=== PATIENT | female | born 1955 | race Caucasian/White ===

== ENCOUNTER 2016-10-24 06:18 | Emergency (ER) | payer BC ==
[2016-03-30 12:11] VITALS: BMI 34.3
[~2016-10-24 06:18] MED LIST: BUPIVACAINE HCL SM; BUPROPION XL300 MG PO; CATAPRES0.1 MG PO; CHLORASEPTIC177 ML TOPICAL; COLACE100 MG PO; OMEPRAZOLE40 MG PO; PERCOCET 10/3251 TA1 PO; PHENERGAN25 M1 PO; PRAVACHOL20 MG PO; PRILOSEC20 MG PO; SENOKOT-S TABLE1 TAB PO; SYNTHROID50 MCG PO
== END 2016-10-24 09:12 | disposition home or self-care (01) ==
LOC: D.ER 06:18
DX: M54.5 Low back pain (principal); M54.30 Sciatica, unspecified side; R60.0 Localized edema

== ENCOUNTER → 2016-10-26 08:30 | Outpatient (CLI) | payer BC ==
[2016-03-30 12:11] VITALS: BMI 34.3
== END | disposition home or self-care (01) ==
LOC: D.MRI 08:30
DX: M54.16 Radiculopathy, lumbar region (principal)

== ENCOUNTER 2017-07-30 08:42 | Outpatient (CLI) | payer BC ==
[2016-03-30 12:11] VITALS: BMI 34.3
== END 2017-07-30 10:25 ==
LOC: D.OPS 08:42
DX: K21.9 Gastro-esophageal reflux disease without esophagitis (principal); J39.8 Other specified diseases of upper respiratory tract

== ENCOUNTER 2017-08-02 09:21 | Day surgery (SDC) | payer BC ==
[~2017-08-02] VITALS: Ht 167.6 cm; Wt 90.9 kg
[2017-08-02 13:07] VITALS: BP 129/77; Ht 167.6 cm; Wt 90.9 kg
[2017-08-02 13:58] LABS: BASOPHILS 0.4 % (0-2); EOSINOPHILS 1.3 % (0-7); HEMATOCRIT 40.1 % (36.0-48.0); HEMOGLOBIN 12.8 g/dL (12-16); IMMATURE GRANULOCYTES 0.2 % (0-5); LYMPHOCYTES 38.7 % (15-50); MCH 29.5 pg (26.0-34.0); MCHC 31.9 g/dL (31.0-37.0); MCV 92.4 fL (80.0-100.0); MEAN PLATELET VOLUME 11.7 fL (7.4-10.4); MONOCYTES 11.1 % (2-11); NEUTROPHILS 48.3 % (40-80); PLATELET COUNT 280 10x3/uL (130-400); RBC 4.34 10x6/uL (4.00-5.40); RDW 14.6 % (11.5-14.5); WBC 4.5 10x3/uL (4.8-10.8)
[2017-08-02 14:05] LABS: CALC OSMOLALITY 283 mosm/kg (275-300); CALCIUM 9.4 mg/dL (8.5-10.1); CARBON DIOXIDE 27.8 mmol/L (21.0-32.0); CHLORIDE - SERUM 106 mmol/L (98-107); CREATININE - SERUM 0.7 mg/dL (0.6-1.3); GLUCOSE 85 mg/dL (74-106); POTASSIUM - SERUM 3.8 mmol/L (3.5-5.1); SODIUM 143 mmol/L (136-145); UREA NITROGEN 13 mg/dL (7-18); eGFR NON AFRICAN AMERICAN > 90 mL/min (90-120)
== END 2017-08-02 15:35 | disposition home or self-care (01) ==
LOC: D.OPS 09:21
PROVIDERS: Anesthesiology
DX: K21.9 Gastro-esophageal reflux disease without esophagitis (principal); J39.8 Other specified diseases of upper respiratory tract; E03.9 Hypothyroidism, unspecified; Z01.812 Encounter for preprocedural laboratory examination

== ENCOUNTER 2017-09-23 08:15 | Inpatient (IN) | payer BC ==
[2017-09-20 10:08] LABS: HEMOGLOBIN 12.9 g/dL (12-16); MCHC 32.3 g/dL (31.0-37.0); MEAN PLATELET VOLUME 10.9 fL (7.4-10.4); RBC 4.3 10x6/uL (4.00-5.40); RDW 14.2 % (11.5-14.5); WBC 5.3 10x3/uL (4.8-10.8)
[2017-09-23] VITALS (14 sets, daily range): BP systolic 111–140; BP diastolic 62–81; BMI 34.7
[~2017-09-23] VITALS: Ht 167.6 cm; Wt 105.9 kg
--- NOTE | ~2017-09-23 | OP ---
PATIENT NAME: LUIS E STOCKTON MEDICAL RECORD: [id number] :57 [facility] DATE:09/23/17 SURGEON: KARLY SMITH MD DATE OF OPERATION: 09/23/2017 SURGEON: Karly Smith MD CO-SURGEON: Benito Foster MD [employer]CHO[employer] LANGUAGE TEACHER: Key Darling APN ANESTHESIA: General. COMPLICATIONS: None. SPECIMENS: Partial gastrectomy. PREOPERATIVE DIAGNOSES: 1. Recurrent tracheal stenosis. 2. Gastroesophageal reflux disease with esophagitis. 3. Hiatal hernia. 4. History of vertical banded gastroplasty. POSTOPERATIVE DIAGNOSES: 1. Recurrent tracheal stenosis. 2. Gastroesophageal reflux disease with esophagitis. 3. Hiatal hernia. 4. History of vertical banded gastroplasty. PROCEDURES PERFORMED: 1. Laparoscopic hiatal hernia repair. 2. Laparoscopic Linx procedure. 3. Laparoscopic revision of vertical banded gastroplasty. 4. Esophagogastroduodenoscopy. 5. Laparoscopic lysis of adhesions. WOUND CLASS: Clean and contaminated. ESTIMATED BLOOD LOSS: 100 cc. OPERATIVE COURSE: After consent was obtained, the patient was taken to the operating room and placed in supine position on the operating table. Next, general anesthesia was given via endotracheal intubation after a timeout was taken to confirm the correct patient and procedure. The abdomen was prepped and draped in typical sterile fashion. Local anesthetic was injected into the right upper quadrant. Local anesthetic was given. Using a 5-mm bladeless optical trocar, the abdomen was entered under direct laparoscopic vision. Adequate pneumoperitoneum was achieved, the abdominal cavity was inspected. No evidence of boundary. No evidence of bleeding. There were significant adhesions in the abdominal wall. The patient has had a previous exploratory laparotomy for her vertical banded gastroplasty. She had had a previous laparoscopic hiatal hernia repair, previous laparoscopic cholecystectomy, and previous TIPS procedure. OPERATIVE REPORT [id number] LUIS E STOCKTON Under direct vision, two trocars were placed into the left lateral quadrant by Dr. Foster. Dr. Foster performed laparoscopic lysis of adhesions of the anterior midline. Once complete, an 11-mm trocar was placed in the midline just above the umbilicus and 12-mm trocar was placed in the right lateral quadrant. Lysis of adhesions again performed along the falciform along the liver. There was some significant scarring of the liver to the anterior surface of the stomach from previous operations. Lysis of adhesions was performed. Once complete, the Jennifer liver retractor was placed through the subxiphoid incision, elevating the left lobe of the liver. Next, the gastrohepatic ligament was opened using the Harmonic scalpel dissection to the level of the right crura. Dissection continued anterior using again the Harmonic scalpel. At this time, the short gastrics were taken along the cardia of the stomach. Dr. Foster was able to use the Harmonic scalpel and dissect the left, skeletonized the left crura using the Harmonic scalpel to complete a 360-degree dissection. Next, the mediastinum was dissected until approximately 6 cm of intra-abdominal esophagus was obtained. Fermin was applied to the mediastinum. The hiatal hernia defect was closed with 0-polypropylene Stratafix suture. At this time, Dr. Foster performed an EGD, see his separate procedure note for full extent of EGD. The scope was passed into the stomach. 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 All the entire hernia sac was dissected off of the gastroesophageal junction as well as the previous Prolene sutures from the TIPS procedure. Once the esophagus and anterior stomach were skeletonized, the Linx sizing device was placed in the abdomen. The Linx measured out to be 17B device. The sizing device was removed. At this time, it was decided to revise the vertical banded gastroplasty with using the EGD scope to identify the gastric anastomosis and a gastrotomy was made using the Harmonic scalpel. The previous vertical TA staple line was opened using the BRIDGETTE stapling device with gold load stapler. The common gastrotomy was closed with several firings of the linear BRIDGETTE stapler. This staple line was reinforced and imbricated using the 3-0 Stratafix suture. The stomach was insufflated. Using the gastroscope, a leak test was performed. There was no evidence of leak. The scope was easily traversed into the duodenum. At this time, the duodenum, stomach, and esophagus were desufflated and the scope was removed. The abdomen was copiously suctioned and irrigated with several liters of warm normal saline. At this time, 17B Linx device was placed into the abdomen and placed on the GE junction. Next, the 5-mm camera was placed. The 12 and 11-mm trocar were removed as well as all remaining instruments. Using the Reinaldo-Jj suture passer, the 2 moderate trocar sites were closed with 0 Vicryl suture. The abdomen was desufflated. Remaining trocars were removed. Skin was closed with 4-0 Monocryl, Mastisol, and Steri-Strips. At the end of the case, all needles and instrument counts were correct. No complications occurred. The patient was extubated and transferred to the PACU in stable condition. TRANSINT:[id number] Voice Confirmation ID: [id number] DOCUMENT ID: [id number] OPERATIVE REPORT [id number] LUIS E STOCKTON,KARLY Valero MD at 0803 CC: [id number] DICTATION DATE: 09/23/171910 GOLD LAYER: 09/23/172046 ADM IN [facility] [address] [place] [address]
--- NOTE | ~2017-09-23 | OP ---
PATIENT NAME: LUIS E STOCKTON MEDICAL RECORD: [id number] :57 LOCATION:[facility] ADMISSION DATE:09/23/17 SURGEON: DIANN WILLSON MD DATE OF OPERATION: 09/23/2017 PREOPERATIVE DIAGNOSES: 1. Intractable gastroesophageal reflux. 2. 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 3. Failed vertical banded gastroplasty. POSTOPERATIVE DIAGNOSES: 1. Intractable gastroesophageal reflux. 2. 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 3. Failed vertical banded gastroplasty. 4. Intra-abdominal adhesions. 5. Hiatal hernia. PROCEDURES: I was the primary surgeon for the EGD. I was case management assistant for procedure for the rest of the operations including the adhesiolysis, the vertical banded gastroplasty revision, the laparoscopic hiatal hernia repair as well as the placement of the Linx procedure. DESCRIPTION OF THE PROCEDURE: My involvement as the surgeon in the operation included performing EGD twice; at both times CO2 insufflation was used, so as not to over inflate stomach and the intestines, which would have made laparoscopic operation much more difficult. A gastroscope was inserted through the mouth. It was advanced easily into the hypopharynx. The esophagus was easily intubated as were the stomach and duodenum. Upon the first EGD, I was able to traverse the vertical banded gastroplasty stoma easily. The gastroscope is 33-St Lucian gastroscope. So the stoma must have been about 33-St Lucian or perhaps slightly larger. 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 The distal pouch revealed some dilation as well. This was a normal amount of dilation, however. The second endoscopy was performed after the revision of the vertical banded gastroplasty was performed. This revealed initially a defect in the posterior aspect of the stomach, which was closed by Dr. Smith. I then performed retroflexed views in both the proximal and distal gastric pouches. This revealed that the septum between the medial aspect of the proximal stomach and the fundus and cardia had been divided with the linear cutting stapler. The final step of the endoscopy was to check for any air leak, Dr. Luis filled the left upper quadrant with normal saline and then I insufflated both in the distal pouch and proximal pouch. There was no leakage indicating an airtight closure. The endoscope was then withdrawn under direct vision. My involvement as an case management assistant in the rest of the operation included placement of lateral 2 trocars, dissection with the Harmonic scalpel of the adhesions in the epigastric portion of the abdomen, and also, some lysis of adhesions along the inferior aspect of the left lateral segment of the liver, and some dissection of scar tissue as well as fat pad and the TIF fixation devices that were outside of the esophagus. We removed some of these as the 2 prior TIF OPERATIVE REPORT [id number] LUIS E STOCKTON operations had failed. Some further division of scar tissue with the Harmonic scalpel. Assistance with suctioning as well as retraction of tissues and assistance with laparoscopic suturing, which was performed by Dr. Smith. I also ran the camera. Also, participated in the closure of the skin incisions. TRANSINT:[id number] Voice Confirmation ID: [id number] DOCUMENT ID: [id number] DIANN WILLSON MD at 1612 CC: [id number] DICTATION DATE: 09/23/171921 COIL MACHINE SUPERVISOR: 09/23/172117 DIS IN 09/25/17 [facility] [address] [place] [address]
[2017-09-24] VITALS (13 sets, daily range): BP systolic 117–133; BP diastolic 62–76; Ht 167.6 cm; Wt 105.9 kg
[2017-09-24 04:33] LABS: BASOPHILS 0 % (0-2); EOSINOPHILS 0 % (0-7); HEMATOCRIT 37.2 % (36.0-48.0); HEMOGLOBIN 11.7 g/dL (12-16); IMMATURE GRANULOCYTES 0.3 % (0-5); LYMPHOCYTES 4.8 % (15-50); MCHC 31.5 g/dL (31.0-37.0); MCV 92.3 fL (80.0-100.0); MEAN PLATELET VOLUME 11.1 fL (7.4-10.4); NEUTROPHILS 88.9 % (40-80); PLATELET COUNT 275 10x3/uL (130-400); RBC 4.03 10x6/uL (4.00-5.40); RDW 13.9 % (11.5-14.5); WBC 10.2 10x3/uL (4.8-10.8)
[2017-09-24 04:58] LABS: ALKALINE PHOSPHATASE 140 U/L (46-116); ALT (SGPT) 203 U/L (10-68); BILIRUBIN - TOTAL 0.54 mg/dL (0.2-1.3); CALC OSMOLALITY 279 mosm/kg (275-300); CALCIUM 8.2 mg/dL (8.5-10.1); CARBON DIOXIDE 26.2 mmol/L (21.0-32.0); CHLORIDE - SERUM 105 mmol/L (98-107); CREATININE - SERUM 0.8 mg/dL (0.6-1.3); PROTEIN - SERUM 6.1 g/dL (6.4-8.2); SODIUM 138 mmol/L (136-145); UREA NITROGEN 14 mg/dL (7-18); eGFR NON AFRICAN AMERICAN 78 mL/min (90-120)
[2017-09-24 05:13] LABS: GLUCOSE 156 mg/dL (74-106)
[2017-09-25 03:00] VITALS: BP 132/60
[2017-09-25 05:06] LABS: BASOPHILS 0.4 % (0-2); EOSINOPHILS 0.4 % (0-7); HEMATOCRIT 31.4 % (36.0-48.0); HEMOGLOBIN 9.9 g/dL (12-16); IMMATURE GRANULOCYTES 0.1 % (0-5); LYMPHOCYTES 13.2 % (15-50); MCH 29.1 pg (26.0-34.0); MCHC 31.5 g/dL (31.0-37.0); MCV 92.4 fL (80.0-100.0); MEAN PLATELET VOLUME 11.3 fL (7.4-10.4); NEUTROPHILS 73.9 % (40-80); PLATELET COUNT 235 10x3/uL (130-400); RDW 14.3 % (11.5-14.5); WBC 7.8 10x3/uL (4.8-10.8)
[2017-09-25 05:17] LABS: CALCIUM 8.1 mg/dL (8.5-10.1); CHLORIDE - SERUM 110 mmol/L (98-107); CREATININE - SERUM 0.7 mg/dL (0.6-1.3); POTASSIUM - SERUM 3.4 mmol/L (3.5-5.1); SODIUM 144 mmol/L (136-145); eGFR NON AFRICAN AMERICAN > 90 mL/min (90-120)
[2017-09-25 05:21] LABS: CALC OSMOLALITY 285 mosm/kg (275-300); GLUCOSE 107 mg/dL (74-106); UREA NITROGEN 9 mg/dL (7-18)
[2017-09-25 07:00] VITALS: BP 132/60
[2017-09-25] MEDS ORDERED: AUGMENTIN 875-11 TAB PO (09:34)
[2017-09-25] MEDS ORDERED: MEPERIDINE HCL50 MG PO (09:35)
[2017-09-25] MEDS ORDERED: ZOFRAN ODT4 MG/UDTAB PO (09:35)
== END 2017-09-25 10:45 | disposition home or self-care (01) | DRG 327 ==
LOC: D.SDCHOLD 08:15 → D.CVICU 08:15 → D.SDCHOLD 10:00 → EDSTATUS 10:00 → D.OPS 10:00 → D.CVICU 19:56
PROVIDERS: Anesthesiology; Surgery
PROC: 0DW64CZ Revision of Extraluminal Device in Stomach, Percutaneous Endoscopic Approach (ICD-10-PCS; principal; 2017-09-23 10:00)
PROC: 0BQT4ZZ Repair Diaphragm, Percutaneous Endoscopic Approach (ICD-10-PCS; 2017-09-23 10:00)
PROC: 0DJ08ZZ Inspection of Upper Intestinal Tract, Via Natural or Artificial Opening Endoscopic (ICD-10-PCS; 2017-09-23 10:00)
DX: K21.0 Gastro-esophageal reflux disease with esophagitis (principal); K95.09 Other complications of gastric band procedure; J39.8 Other specified diseases of upper respiratory tract; K66.0 Peritoneal adhesions (postprocedural) (postinfection); K44.9 Diaphragmatic hernia without obstruction or gangrene; Y83.8 Other surgical procedures as the cause of abnormal reaction of the patient, or of later complication, without mention of misadventure at the time of the procedure

== ENCOUNTER → 2017-12-17 16:38 | Outpatient (CLI) | payer BC ==
[2017-09-24 09:47] VITALS: BMI 38.5
[~2017-12-17 16:38] MED LIST changes: +AUGMENTIN 875-11 TAB PO; +MEPERIDINE HCL50 MG PO; +ZOFRAN ODT4 MG/UDTAB PO
== END | disposition home or self-care (01) ==
LOC: D.CT 16:38
DX: R06.09 Other forms of dyspnea (principal)

== ENCOUNTER 2018-01-31 06:17 | Day surgery (SDC) | payer BC ==
[~2018-01-31] VITALS: Ht 167.6 cm; Wt 92.3 kg
--- NOTE | ~2018-01-31 | OP ---
PATIENT NAME: LUIS E STOCKTON MEDICAL RECORD: [id number] :57 LOCATION:[facility] ADMISSION DATE: SURGEON: KARLY WHEAT MD DATE OF OPERATION: 01/31/2018 SURGEON: Karly Wheat MD PREOPERATIVE DIAGNOSES: Dysphagia, intractable vomiting. POSTOPERATIVE DIAGNOSES: Dysphagia, intractable vomiting. PROCEDURE PERFORMED: Esophagogastroduodenoscopy with balloon dilatation. ANESTHESIA: Total intravenous anesthesia. COMPLICATIONS: None. SPECIMENS: None. Case contaminated. OPERATIVE COURSE: After consent was obtained, the patient was taken to the endoscopy suite. A timeout was taken to confirm the correct patient and procedure. A bite block was placed. Hurricaine [place] was administered. Total intravenous anesthesia was given. The patient was placed in left lateral decubitus position. After adequate anesthesia was given, the gastroscope was inserted through the biteblock and into the posterior oropharynx. It was passed posterior to the epiglottis. Gastroscope was then advanced under direct endoscopic vision to the esophagus. The GE junction was examined. The previous area of hiatal hernia repair and LINX appears intact. Z line is normal. Good apposition of the GE junction. The scope was easily traversed across the GE junction. Immediately upon entering the stomach, there was a significant amount of retained gastric contents. Copious irrigation of the stomach was performed. The scope was retroflexed. The GE junction appeared intact. There is no hiatal hernia noted. Once the fundus was appropriately irrigated and cleaned, we immediately noticed the area of previous gastrogastric anastomosis was widely patent. The scope was advanced to the gastrogastric anastomosis into the distal stomach where again large amount of retained food was encountered and again copious irrigation and secretion was done. The scope was advanced to the pylorus and into the first portion of duodenum, which appeared intact. The scope was then withdrawn to the gastrogastric fistula. A small opening was identified adjacent to the gastrogastric fistula. After manipulation, the scope was able to be traversed. I believe this is the area of the previous vertical gastric banding where there is a foreign body Silastic tubing noted on one CT scan of the abdomen and pelvis along the lesser curve of the stomach. A balloon dilator was then passed through the opening. It was dilated to a 40-Polish and held for 3 minutes. The balloon was then advanced to 43.5 and held for 3 minutes. The scope was easily traversed back and forth across the anastomosis. Next, the 60-Polish balloon was inserted across the gastrogastric anastomosis and dilated with minimal resistance and held for 3 minutes. At this time, the scope was passed into the distal stomach and retroflexed. Both openings were identified and patent. At this time, the stomach was desufflated. Scope was withdrawn. The esophagus appeared within normal limits. At the end of the procedure, all needle and instrument counts were correct. No complications occurred. The patient tolerated the procedure well. At the end of the case, OPERATIVE REPORT [id number] MAHIN,LUIS E MONTERO she was transferred to the recovery room in satisfactory condition. TRANSINT:[id number] Voice Confirmation ID: [id number] DOCUMENT ID: [id number] KARLY WHEAT MD at 2341 CC: [id number] DICTATION DATE: 01/31/18 0844 APPRENTICE TECHNICIAN: 01/31/18 0951 [facility] 01/31/18 [id number] [place] [address]
[2018-01-31] MEDS ORDERED: PROBIOTIC1 EAC1 PO (07:31)
[2018-01-31] MEDS ORDERED: IMODIUM2 MG PO (07:31)
[2018-01-31 07:34] LABS: HEMOGLOBIN 12.1 g/dL (12-16); MCH 28.9 pg (26.0-34.0); MCHC 31.8 g/dL (31.0-37.0); MCV 90.9 fL (80.0-100.0); MEAN PLATELET VOLUME 11.2 fL (7.4-10.4); RBC 4.18 10x6/uL (4.00-5.40); RDW 14.9 % (11.5-14.5); WBC 5.5 10x3/uL (4.8-10.8)
[2018-01-31 07:41] VITALS: BP 125/59; Ht 167.6 cm; Wt 92.3 kg
[2018-01-31] MEDS ORDERED: LOMOTIL 2.5-0.1 EAC1 PO (09:15)
[2018-01-31] MEDS ORDERED: PREVALITE POWD231 GM PO (09:15)
== END 2018-01-31 09:50 | disposition home or self-care (01) ==
LOC: D.OPS 06:17
PROVIDERS: Anesthesiology
DX: R13.10 Dysphagia, unspecified (principal); R11.10 Vomiting, unspecified; Z01.812 Encounter for preprocedural laboratory examination

== ENCOUNTER → 2019-09-22 13:25 | Outpatient (CLI) | payer BC ==
[2018-01-31 07:41] VITALS: BMI 32.8
[~2019-09-22 13:25] MED LIST changes: +IMODIUM2 MG PO; +LOMOTIL 2.5-0.1 EAC1 PO; +PREVALITE POWD231 GM PO; +PROBIOTIC1 EAC1 PO
== END | disposition home or self-care (01) ==
LOC: D.LAB 13:25
PROVIDERS: ATTEND Surgery
DX: Z11.59 Encounter for screening for other viral diseases (principal)